=== PATIENT | male | born 1950 | race Caucasian/White ===

== ENCOUNTER 2024-03-20 16:22 | Inpatient (IN) | payer OTHER, MEDICAID ==
[~2024-03-20] VITALS: Ht 170.2 cm; Wt 64.2 kg
[~2024-03-20 16:22] MED LIST: ASPI81CH45; PHEN100C
[2024-03-20 16:45] VITALS: PULSE 99; RESP 15; O2SAT 96
[2024-03-20] MEDS: SODIUM CHLORIDE 0.9% 2,000 ML IV ONE (16:45)
[2024-03-20 17:58] LABS: Urine Bacteria None Seen /hpf (None Seen)
[2024-03-20 17:59] LABS: Basophils # (auto) 0.1 10 ^3/uL (0-0.2); Basophils % (auto) 0.6 % (0.0-2.0); Eosinophils # (auto) 0.4 10 ^3/uL (0-0.8); Eosinophils % (auto) 4.5 % (0.0-7.0); Hematocrit 29.8 % (41.0-53.0); Hemoglobin 9.6 g/dL (13.5-17.5); Lymphocytes # (auto) 1.5 10 ^3/uL (0.4-5.4); Lymphocytes % (auto) 16.6 % (10.0-50.0); Mean Corpuscular Hemoglobin 27.9 pg (28.0-32.0); Mean Corpuscular Hgb Conc. 32.1 g/dL (32.0-36.0); Mean Corpuscular Volume 86.7 fL (80.0-100.0); Monocytes # (auto) 0.8 10 ^3/uL (0-1.3); Monocytes % (auto) 8.5 % (0.0-12.0); Neutrophils # (auto) 6.4 10 ^3/uL (1.6-8.6); Neutrophils % (auto) 69.8 % (37.0-80.0); Nucleated Red Blood Cells % 0.1 %; Red Blood Cells 3.43 10^6/uL (4.5-5.90); Red Cell Distribution Width 15.5 % (11.8-14.3); White Blood Cell 9.2 10^3/uL (4.4-10.8)
[2024-03-20 18:13] LABS: Albumin 3.6 g/dL (3.2-4.8); Alkaline Phosphatase 64 U/L (46-116); Anion Gap 10 (5-15); Calcium 8.6 mg/dL (8.5-10.1); Carbon Dioxide 25 mmol/L (20-30); Chloride 117 mmol/L (98-107); Glucose 96 mg/dL (74-106); Potassium 3.7 mmol/L (3.5-5.1); Sodium 152 mmol/L (136-145)
[2024-03-20 18:14] LABS: Aspartate Aminotransferase 13 U/L (13-40); Bilirubin, Total 0.4 mg/dL (0.2-1.0); Blood Urea Nitrogen 51 mg/dL (9-23); Total Protein 6.7 g/dL (5.7-8.2)
[2024-03-20] MEDS ORDERED: ACETAMINOPHEN 325 MG TAB PO PRN ×2 (18:15→21:45)
[2024-03-20] MEDS ORDERED: VANCOMYCIN PER PHARMACY 0 MG IV SCH (18:15)
[2024-03-20 18:17] LABS: Urine Blood Negative /uL (Negative); Urine Clarity Clear (Clear); Urine Color Yellow (Yellow); Urine Protein, UAD Negative (Negative); Urine Specific Gravity 1.023 (1.001-1.035); Urine Urobilinogen Normal (Negative); Urine WBC <1 /hpf (0 - 3); Urine pH 5.5 (5.0-9.0)
[2024-03-20 18:34] LABS: Alanine Aminotransferase < 9 U/L (7-40)
[2024-03-20] MEDS: ALBUMIN 25% 100 ML IV ONE (18:45)
[2024-03-20 19:04] LABS: INR 1.11 (0.9-1.15); Partial Thromboplastin Time 27.1 SEC (24.5-34.5); Prothrombin Time 11.7 sec (9.3-11.8)
[2024-03-20] MEDS: PANTOPRAZOLE 40 MG/10 ML VIAL INJ IV ONE (19:07)
[2024-03-20] MEDS: NOREPINEPHRINE 8 MG/250ML KIT 250 ML IV SCH ×2 (19:07→21:31)
[2024-03-20] MEDS: PIPERACILLIN-TAZO 4.5GM 100 ML IV ONE (19:08)
[2024-03-20 19:30] VITALS: PULSE 88; RESP 16; O2SAT 98
[2024-03-20] MEDS: VANCOMYCIN 1GM/200ML 200 ML IV ONE (20:11)
[2024-03-20] MEDS: IOHEXOL 300 MG/ML 100ML BOTTLE IJ ONE (20:38)
[2024-03-20] MEDS: IOHEXOL 350 MG/ML 100ML IJ ONE (21:10)
[2024-03-20] MEDS ORDERED: HYDROcodone-ACET 5/325MG TAB PO PRN (21:45)
[2024-03-20] MEDS ORDERED: ONDANSETRON HCL 4 MG/2 ML VIAL IV PRN (21:45)
[2024-03-20] MEDS ORDERED: HYDROmorphone HCL 2 MG/ML VL/or syr IV PRN (21:45)
[2024-03-20] MEDS: SODIUM CHLOR 0.9% PF (SALINE LOCK) 10ML VIAL/SYR IV SCH (22:17)
[2024-03-20] MEDS: LACTATED RINGER'S 1,000 ML IV SCH (23:33)
[2024-03-20 23:47] LABS: % Iron Saturation 20.1 % (20-55)
[2024-03-21] MEDS: PIPERACILLIN-TAZO 4.5GM 100 ML IV SCH (02:47)
[2024-03-21 03:11] LABS: Basophils # (auto) 0.1 10 ^3/uL (0-0.2); Basophils % (auto) 0.5 % (0.0-2.0); Eosinophils # (auto) 0.4 10 ^3/uL (0-0.8); Eosinophils % (auto) 3.5 % (0.0-7.0); Hematocrit 29.7 % (41.0-53.0); Hemoglobin 9.5 g/dL (13.5-17.5); Lymphocytes # (auto) 1.7 10 ^3/uL (0.4-5.4); Lymphocytes % (auto) 14.9 % (10.0-50.0); Mean Corpuscular Hemoglobin 27.8 pg (28.0-32.0); Mean Corpuscular Hgb Conc. 31.9 g/dL (32.0-36.0); Mean Corpuscular Volume 87.2 fL (80.0-100.0); Monocytes # (auto) 1.1 10 ^3/uL (0-1.3); Monocytes % (auto) 9.2 % (0.0-12.0); Neutrophils # (auto) 8.3 10 ^3/uL (1.6-8.6); Neutrophils % (auto) 71.9 % (37.0-80.0); Red Cell Distribution Width 15.5 % (11.8-14.3); White Blood Cell 11.5 10^3/uL (4.4-10.8)
[2024-03-21 03:23] LABS: Anion Gap 10 (5-15); Carbon Dioxide 23 mmol/L (20-30); Chloride 115 mmol/L (98-107); Sodium 148 mmol/L (136-145)
[2024-03-21 03:24] LABS: Calcium 8.6 mg/dL (8.7-10.4)
[2024-03-21 03:29] LABS: BUN/Creatinine Ratio 32.2 (10.0-20.0); Glucose 145 mg/dL (74-106)
[2024-03-21 03:32] LABS: Blood Urea Nitrogen 28 mg/dL (9-23)
[2024-03-21 07:30] VITALS: PULSE 55; RESP 17; O2SAT 99
[2024-03-21] MEDS ORDERED: VANCOMYCIN 1GM/200ML 200 ML IV SCH (08:00)
[2024-03-21] MEDS: VANCOMYCIN 750mg/150ml 150 ML IV SCH (09:40)
[2024-03-21] MEDS: PANTOPRAZOLE 40 MG/10 ML VIAL INJ IV SCH (11:18)
[2024-03-21] MEDS: ENOXAPARIN SOD 40 MG/0.4 ML SYRINGE SC SCH (11:18)
[2024-03-21] MEDS ORDERED: CEFEPIME 1GM/ 50ML 50 ML IV SCH (14:00)
[2024-03-21] MEDS: CEFEPIME 2GM/50ML NS 50 ML IV SCH (15:29)
[2024-03-21 19:30] VITALS: PULSE 57; RESP 18; O2SAT 98
[2024-03-21] MEDS: OMNIPAQUE 12mg/ml 500ml ORAL SOLUTION PO ONE (19:30)
[2024-03-21] MEDS ORDERED: LORazepam 2MG/ML-1ML VIAL IV PRN ×2 (21:15)
[2024-03-21] MEDS: CARBIDOPA W LEVODOPA 25/100mg TABLET PO SCH (21:58)
[2024-03-21] MEDS: levETIRAcetam 500 MG TAB PO SCH (21:58)
[2024-03-21] MEDS ORDERED: levETIRAcetam 500 MG TAB PO SCH (22:00)
[2024-03-22 04:03] LABS: Basophils # (auto) 0.1 10 ^3/uL (0-0.2); Basophils % (auto) 0.6 % (0.0-2.0); Eosinophils # (auto) 0.4 10 ^3/uL (0-0.8); Eosinophils % (auto) 3.6 % (0.0-7.0); Hematocrit 32.7 % (41.0-53.0); Hemoglobin 10.5 g/dL (13.5-17.5); Lymphocytes # (auto) 2.1 10 ^3/uL (0.4-5.4); Lymphocytes % (auto) 17.9 % (10.0-50.0); Mean Corpuscular Hemoglobin 27.9 pg (28.0-32.0); Mean Corpuscular Hgb Conc. 32.1 g/dL (32.0-36.0); Mean Corpuscular Volume 86.7 fL (80.0-100.0); Monocytes % (auto) 8.2 % (0.0-12.0); Neutrophils # (auto) 8.2 10 ^3/uL (1.6-8.6); Neutrophils % (auto) 69.7 % (37.0-80.0); Red Blood Cells 3.77 10^6/uL (4.5-5.90); Red Cell Distribution Width 15.2 % (11.8-14.3); White Blood Cell 11.8 10^3/uL (4.4-10.8)
[2024-03-22 04:08] LABS: Chloride 112 mmol/L (98-107); Potassium 3.3 mmol/L (3.5-5.1); Sodium 143 mmol/L (136-145)
[2024-03-22 04:09] LABS: Anion Gap 10 (5-15); Calcium 8.6 mg/dL (8.5-10.1); Carbon Dioxide 21 mmol/L (20-30)
[2024-03-22 04:14] LABS: BUN/Creatinine Ratio 19.4 (10.0-20.0); Blood Urea Nitrogen 14 mg/dL (9-23); Glucose 113 mg/dL (74-106)
[2024-03-22 04:24] LABS: CRP High Sensitivity 10.63 mg/dL (<1.0)
[2024-03-22 06:03] LABS: Erythrocyte Sedimentation Rate 75 mm/hr (0-20)
[2024-03-22 07:30] VITALS: PULSE 56; RESP 20; O2SAT 98
[2024-03-22] MEDS: GADOTERATE MEG 10 MMOL/20ml INJ (0.5MMOL/ml) IV ONE (07:33)
[2024-03-22] MEDS: POTASSIUM CHL 20 Meq TABLET PO ONE (18:21)
[2024-03-22] MEDS: TAMSULOSIN HYDROCHLORIDE 0.4 MG CAP PO SCH (18:22)
[2024-03-22 19:30] VITALS: PULSE 52; RESP 17; O2SAT 98
[2024-03-23 04:48] LABS: Basophils # (auto) 0.1 10 ^3/uL (0-0.2); Basophils % (auto) 0.6 % (0.0-2.0); Eosinophils # (auto) 0.6 10 ^3/uL (0-0.8); Eosinophils % (auto) 4.2 % (0.0-7.0); Hematocrit 34.4 % (41.0-53.0); Hemoglobin 11.2 g/dL (13.5-17.5); Lymphocytes # (auto) 2.3 10 ^3/uL (0.4-5.4); Lymphocytes % (auto) 17.7 % (10.0-50.0); Mean Corpuscular Hemoglobin 28.4 pg (28.0-32.0); Mean Corpuscular Hgb Conc. 32.5 g/dL (32.0-36.0); Mean Corpuscular Volume 87.4 fL (80.0-100.0); Monocytes # (auto) 1.1 10 ^3/uL (0-1.3); Monocytes % (auto) 8.3 % (0.0-12.0); Neutrophils # (auto) 9.2 10 ^3/uL (1.6-8.6); Neutrophils % (auto) 69.2 % (37.0-80.0); Red Blood Cells 3.93 10^6/uL (4.5-5.90); Red Cell Distribution Width 15.1 % (11.8-14.3); White Blood Cell 13.2 10^3/uL (4.4-10.8)
[2024-03-23 04:58] LABS: Chloride 112 mmol/L (98-107); Potassium 3.5 mmol/L (3.5-5.1); Sodium 142 mmol/L (136-145)
[2024-03-23 04:59] LABS: Anion Gap 9 (5-15); Calcium 8.6 mg/dL (8.5-10.1); Carbon Dioxide 21 mmol/L (20-30)
[2024-03-23 05:04] LABS: BUN/Creatinine Ratio 18.5 (10.0-20.0); Blood Urea Nitrogen 12 mg/dL (9-23); Glucose 77 mg/dL (74-106)
[2024-03-23 05:05] LABS: Magnesium 1.9 mg/dL (1.6-2.6)
[2024-03-23 08:06] VITALS: PULSE 60; RESP 19; O2SAT 97
[2024-03-23 11:00] VITALS: BP 90/46; PULSE 64; RESP 16; TEMP 98.1; O2SAT 93
[2024-03-23 11:20] VITALS: BP 92/46; PULSE 64; RESP 16; TEMP 98.1; O2SAT 93
[2024-03-23 16:39] VITALS: BP 103/58; PULSE 64; RESP 16; TEMP 98; O2SAT 92
[2024-03-23 20:00] VITALS: RESP 16
[2024-03-23 21:00] VITALS: BP 113/55; PULSE 83; RESP 20; TEMP 99.1; O2SAT 96
[2024-03-24] VITALS (7 sets, daily range): BP systolic 111–142; BP diastolic 55–64; PULSE 20–98; RESP 16–20; TEMP 98–99.6; O2SAT 91–96
[2024-03-24 07:11] LABS: Albumin 3.1 g/dL (3.2-4.8); Alkaline Phosphatase 52 U/L (46-116); Anion Gap 10 (5-15); Aspartate Aminotransferase 18 U/L (13-40); BUN/Creatinine Ratio 13.6 (10.0-20.0); Blood Urea Nitrogen 8 mg/dL (9-23); Calcium 8.3 mg/dL (8.5-10.1); Carbon Dioxide 19 mmol/L (20-30); Chloride 111 mmol/L (98-107); Glucose 67 mg/dL (74-106); Magnesium 1.9 mg/dL (1.6-2.6); Potassium 3.6 mmol/L (3.5-5.1); Sodium 140 mmol/L (136-145)
[2024-03-24 07:12] LABS: Bilirubin, Total 1.4 mg/dL (0.2-1.0); Total Protein 6.2 g/dL (5.7-8.2)
[2024-03-24 07:42] LABS: Alanine Aminotransferase < 9 U/L (7-40)
[2024-03-24 08:06] LABS: Basophils # (auto) 0.1 10 ^3/uL (0-0.2); Basophils % (auto) 0.8 % (0.0-2.0); Eosinophils # (auto) 0.5 10 ^3/uL (0-0.8); Eosinophils % (auto) 4.9 % (0.0-7.0); Hematocrit 32.2 % (41.0-53.0); Hemoglobin 10.3 g/dL (13.5-17.5); Lymphocytes # (auto) 1.1 10 ^3/uL (0.4-5.4); Lymphocytes % (auto) 11.7 % (10.0-50.0); Mean Corpuscular Hemoglobin 27.7 pg (28.0-32.0); Mean Corpuscular Volume 86.4 fL (80.0-100.0); Monocytes # (auto) 0.8 10 ^3/uL (0-1.3); Monocytes % (auto) 8.3 % (0.0-12.0); Neutrophils # (auto) 6.9 10 ^3/uL (1.6-8.6); Neutrophils % (auto) 74.3 % (37.0-80.0); Red Blood Cells 3.73 10^6/uL (4.5-5.90); Red Cell Distribution Width 14.8 % (11.8-14.3); White Blood Cell 9.3 10^3/uL (4.4-10.8)
[2024-03-24] MEDS: levETIRAcetam 1500 mg/100ml 100 ML IV ONE (14:34)
[2024-03-24] MEDS: levETIRAcetam 1500 mg/100ml 100 ML IV SCH (21:31)
[2024-03-25] VITALS (7 sets, daily range): BP systolic 105–140; BP diastolic 54–73; PULSE 57–76; RESP 16–19; TEMP 97.8–99.4; O2SAT 90–97
[2024-03-25 07:58] LABS: Basophils # (auto) 0.1 10 ^3/uL (0-0.2); Basophils % (auto) 0.7 % (0.0-2.0); Eosinophils # (auto) 0.4 10 ^3/uL (0-0.8); Eosinophils % (auto) 3.7 % (0.0-7.0); Hematocrit 30.2 % (41.0-53.0); Lymphocytes # (auto) 1.1 10 ^3/uL (0.4-5.4); Lymphocytes % (auto) 10.9 % (10.0-50.0); Mean Corpuscular Hemoglobin 28.7 pg (28.0-32.0); Mean Corpuscular Hgb Conc. 33.3 g/dL (32.0-36.0); Mean Corpuscular Volume 86.2 fL (80.0-100.0); Monocytes # (auto) 0.9 10 ^3/uL (0-1.3); Monocytes % (auto) 8.9 % (0.0-12.0); Neutrophils # (auto) 7.8 10 ^3/uL (1.6-8.6); Neutrophils % (auto) 75.8 % (37.0-80.0); Red Cell Distribution Width 14.6 % (11.8-14.3); White Blood Cell 10.3 10^3/uL (4.4-10.8)
[2024-03-25] MEDS: DexAMETHasone SOD PHOS 4 MG/1ML SDV INJ IV SCH ×2 (16:00→22:24)
[2024-03-26] VITALS (8 sets, daily range): BP systolic 94–118; BP diastolic 42–58; PULSE 55–71; RESP 16–18; TEMP 97.4–98.4; O2SAT 93–99
[2024-03-26 07:38] LABS: Basophils # (auto) 0 10 ^3/uL (0-0.2); Basophils % (auto) 0.3 % (0.0-2.0); Eosinophils # (auto) 0 10 ^3/uL (0-0.8); Hemoglobin 10.8 g/dL (13.5-17.5); Lymphocytes # (auto) 0.6 10 ^3/uL (0.4-5.4); Lymphocytes % (auto) 5.3 % (10.0-50.0); Mean Corpuscular Hemoglobin 28.3 pg (28.0-32.0); Mean Corpuscular Hgb Conc. 32.9 g/dL (32.0-36.0); Mean Corpuscular Volume 85.9 fL (80.0-100.0); Monocytes # (auto) 0.1 10 ^3/uL (0-1.3); Monocytes % (auto) 0.7 % (0.0-12.0); Neutrophils # (auto) 10.6 10 ^3/uL (1.6-8.6); Neutrophils % (auto) 93.7 % (37.0-80.0); Red Blood Cells 3.84 10^6/uL (4.5-5.90); Red Cell Distribution Width 14.9 % (11.8-14.3); White Blood Cell 11.3 10^3/uL (4.4-10.8)
[2024-03-26 07:45] LABS: Anion Gap 10 (5-15); Carbon Dioxide 22 mmol/L (20-30); Chloride 107 mmol/L (98-107); Potassium 3.7 mmol/L (3.5-5.1); Sodium 139 mmol/L (136-145)
[2024-03-26 07:46] LABS: Calcium 8.4 mg/dL (8.5-10.1)
[2024-03-26 07:51] LABS: Blood Urea Nitrogen 13 mg/dL (9-23); Glucose 143 mg/dL (74-106)
[2024-03-26] MEDS: SODIUM CHLORIDE 0.9% 500 ML IV ONE (09:30)
[2024-03-27] VITALS (7 sets, daily range): BP systolic 89–116; BP diastolic 44–48; PULSE 42–62; RESP 16–18; TEMP 36.4; O2SAT 91–95
[2024-03-27 06:47] LABS: Chloride 109 mmol/L (98-107); Potassium 3.5 mmol/L (3.5-5.1); Sodium 140 mmol/L (136-145)
[2024-03-27 06:48] LABS: Anion Gap 11 (5-15); Calcium 8.4 mg/dL (8.5-10.1); Carbon Dioxide 20 mmol/L (20-30)
[2024-03-27 06:53] LABS: Blood Urea Nitrogen 20 mg/dL (9-23); Glucose 161 mg/dL (74-106)
[2024-03-27 07:07] LABS: Magnesium 1.9 mg/dL (1.6-2.6)
[2024-03-27 07:13] LABS: Basophils # (auto) 0 10 ^3/uL (0-0.2); Basophils % (auto) 0.1 % (0.0-2.0); Eosinophils # (auto) 0 10 ^3/uL (0-0.8); Hematocrit 35.9 % (41.0-53.0); Hemoglobin 11.1 g/dL (13.5-17.5); Lymphocytes % (auto) 5.7 % (10.0-50.0); Mean Corpuscular Hemoglobin 28.6 pg (28.0-32.0); Mean Corpuscular Volume 92.3 fL (80.0-100.0); Monocytes # (auto) 0.5 10 ^3/uL (0-1.3); Monocytes % (auto) 2.9 % (0.0-12.0); Neutrophils # (auto) 16.6 10 ^3/uL (1.6-8.6); Neutrophils % (auto) 91.3 % (37.0-80.0); Red Blood Cells 3.89 10^6/uL (4.5-5.90); Red Cell Distribution Width 16.2 % (11.8-14.3); White Blood Cell 18.2 10^3/uL (4.4-10.8)
[2024-03-27] MEDS ORDERED: LISI20TA56 PO (18:00)
[2024-03-27] MEDS ORDERED: TAMS0.4C36 PO (18:00)
[2024-03-27] MEDS ORDERED: LEVE500T40 PO (18:00)
[2024-03-27] MEDS ORDERED: CARB25TA79 PO (18:00)
== END 2024-03-27 19:11 | disposition hospice, inpatient (51) | DRG 871 ==
LOC: ER 16:22 → EDBD 16:22 → UNDOADMIN 21:47 → TELE 21:47 → TELE-WESTW 03-23 11:05 → TELE-CENTR 03-26 22:20
PROVIDERS: ADMIT Internal Medicine; ATTEND Emergency Medicine
DX: A41.9 Sepsis, unspecified organism (principal); G93.41 Metabolic encephalopathy; J15.69 Pneumonia due to other Gram-negative bacteria; R65.21 Severe sepsis with septic shock; G93.6 Cerebral edema; E87.0 Hyperosmolality and hypernatremia; C79.31 Secondary malignant neoplasm of brain; C34.92 Malignant neoplasm of unspecified part of left bronchus or lung; C34.91 Malignant neoplasm of unspecified part of right bronchus or lung; I10 Essential (primary) hypertension; G40.901 Epilepsy, unspecified, not intractable, with status epilepticus; R00.1 Bradycardia, unspecified; E86.0 Dehydration; D63.8 Anemia in other chronic diseases classified elsewhere; F02.80 Dementia in other diseases classified elsewhere, unspecified severity, without behavioral disturbance, psychotic disturbance, mood disturbance, and anxiety; F17.210 Nicotine dependence, cigarettes, uncomplicated; N40.0 Benign prostatic hyperplasia without lower urinary tract symptoms; Z66 Do not resuscitate; G20.A1 Parkinson's disease without dyskinesia, without mention of fluctuations; G40.401 Other generalized epilepsy and epileptic syndromes, not intractable, with status epilepticus; Z79.82 Long term (current) use of aspirin; Z79.899 Other long term (current) drug therapy; Z87.440 Personal history of urinary (tract) infections; Z81.8 Family history of other mental and behavioral disorders; Z82.0 Family history of epilepsy and other diseases of the nervous system
CPT/HCPCS: 36415; 70450; 70553; 71045; 71260; 74177; 80048; 80053; 80185; 80202; 81001; 82140; 82575; 82728; 82962; 83540; 83550; 83605; 83735; 84443; 84484; 85025; 85610; 85652; 85730; 86141; 86850; 86900; 86901; 87040; 87086; 92507; 92610; 93005; 93306; 95819; 96361; 96365; C9113; G0378; J0692; J1100; J2543; P9047